=== PATIENT | male | born 2000 | race Two or more races ===

== ENCOUNTER 2025-04-29 20:14 | Emergency (ER) | payer OTHER ==
[~2025-04-29] VITALS: Ht 152.4 cm; Wt 81.8 kg
[2025-04-29 20:30] VITALS: TEMP 98.6
[2025-04-29] MEDS: NALOXONE HCL 0.4 MG/ML VIAL ONE (20:33)
--- NOTE | 2025-04-29 20:34 | ED.PDOC ---
Altered Mental Status HPI Comments HPI: 25 year old male presents to the emergency department via EMS with a chief complaint of overdose onset today (04/29/25). Per EMS, patient was found unresponsive by mother, laying on couch, mother noticed patient was not breathing, lips turning blue, she began compressions. Upon EMS arrival, patient's O2 sat was 33% on RA, RR 4, pale. 2 mg Narcan IN and 2 mg Narcan was given prior to ED arrival. Upon ED arrival, patient is responsive, poor historian, able to open eyes are answer questions. States he has a PMHx seizures, took about 10 pills of Xanax, unknown dosage, not able to say if medication is prescribed to him. Denies any fall, head injury, nausea, vomiting, diarrhea, chest pain, shortness of breath. No other symptoms or modifying factors present at this time. Initial Vitals BP: 144/79 HR: 116 RR: 4 O2 Sat: 33% RA ED arrival vitals: BP: 143/83 HR: 98 RR: 18 O2 Sat: 98% on 2L NC Past Medical history: seizure Past Surgical history: denies Medications: denies Social History: drug use. Allergies: NKDA HPI: Poor Historian. REVIEW OF SYSTEMS: CONSTITUTIONAL: Denies acute: fever, diaphoresis, chills, HEAD: Denies acute: headache, photophobia Eyes: Denies acute: Double vision, vision loss, eye pain, eye discharge. EARS: Denies acute: tinnitus, hearing loss, ear discharge, ear pain, THROAT: Denies acute: sore throat, swelling, difficulty swallowing , pain with swallowing, change in voice. NECK: Denies acute: neck pain, neck swelling, stiff neck. HEART: Denies acute : chest pain, palpitations, LUNGS: Denies acute: SOB, wheezing, cough, hemoptysis ABDOMEN: Denies acute: abdominal pain, Nausea, Vomiting, diarrhea, melena , hematemesis, hematochezia SKIN: Denies acute: rash, redness, lesions, itchiness. EXTREMITIES: Denies acute: calf pain, numbness, tingling, weakness, denies pain in extremity. Denies acute: Low back pain. Neuro: Denies acute: focal neurological deficit, motor or sensory focal neurological deficit, tremors, seizure like activity, loss of bowel or bladder function, cauda equina like symptoms. : Denies acute: dysuria, hematuria, flank pain, increase in urinary frequency. PSYCH: Denies acute: hallucination, suicidal ideation, homicidal ideation. PHYSICAL EXAM: General: ----no---acute distress, awake and alert. Head: normocephalic, atraumatic. Neck: supple, trachea is midline, no swelling. Cervical spine: Palpation of the posterior midline of the cervical spine reveals no focal swelling, erythema, focal tenderness to palpation. Patient has normal range of motion. Throat: Normal phonation. Eyes:, no erythema, no purulent discharge, no proptosis, no icterus. Heart: regular rate, regular rhythm, no significant murmur appreciated. Lungs: no apparent respiratory distress, No wheezing, no rhonchi, no crackles. No stridors Clear to auscultation bilaterally. Abdomen: non tender to palpation, non distended, soft, no guarding, no rebound, + bowel sounds. Neuro: Awake, Alert, oriented to name, self, situation, follows commands. Appears under the influence of some sedative. Skin: no petechia, no purpura, no cyanosis, non-pale, not jaundice. Lower extremities: --no - Pitting edema no deformity, no focal swelling, no calf TTP. Makes eye contact. moves all four extremities. Face: no apparent facial droop. PERRLA, EOM-I CN 2-12 are grossly intact, Bilateral Pupils are dilated but reactive to light. No nystagmus. No nuchal rigidity, Kernig's sign, Brudzinski's sign, no meningeal signs. ED COURSE: DISCLAIMER: This medical document was created using an electronic medical record system with voice recognition software and computerized dictation system. Although this document has been carefully reviewed, there might still be some phonetic and typographical errors. Occasional wrong-word or "sound-alike" substitutions may have occurred due to the inherent limitations of voice recognition software. Th carrie areas are purely typographical due to imperfections of the software programs and do not reflect any compromise in the patient's medical care. Please read the chart carefully and recognize, using context, where these substitutions have occurred. Time Seen by MD: 20:20 Reviewed Notes: Medications, Allergies Allergies: Coded Allergies: NO KNOWN ALLERGIES (Unverified , 04/29/25) Information Source: Patient, Emergency Med Personnel Mode of Arrival: EMS Severity: Moderate Timing: Hours Duration: Since onset Prehospital treatment: Other (Narcan 4 mg) Quality: Decreased Alertness, Change in Behavior Recent: None History of: Other Past Medical History PAST MEDICAL HISTORY: Seizures Surgical History: Appendectomy Family History Family History: Reviewed,noncontributory to illness, No family hx of Cancer, No family hx of DM, No family hx of Heart alicia, No family hx of HTN, No family hx ofKidney alicia, No family hx of Liver alicia, No family hx of Lung alicia, No family hx of Stroke Social History Smoker: Non-Smoker Alcohol: Denies ETOH Use Drugs: Other Lives In: Home EKG EKG : Pulse Rate (adult): 92 Cardiac Rhythm: NSR Was a procedure done? Was a procedure done?: No Differential Diagnosis (ALOC) Differential Diagnosis: Other (DDX include CVA, TGA, cerebellar ischemia/infarct, carotid stenosis, Intracranial mass/infection/bleed, encephalopathy, electrolyte abnormality, thyroid disease, hydrocephalus, hypoglycemia, drug toxicity, cardiac arrhythmia, seizure, infection in the elderly, Hyperammonemia., kidney failure., sepsis.) X-Ray, Labs, Meds, VS Vital Signs Date Time Temp Pulse Resp B/P (MAP) Pulse Ox O2 Delivery O2 Flow Rate FiO2 04/30/25 04:00 62 14 109/67 (81) 100 04/30/25 02:00 53 109/70 (83) 100 04/30/25 00:13 52 04/30/25 00:00 64 112/79 (90) 99 04/29/25 22:00 82 14 132/91 (105) 99 04/29/25 20:34 92 04/29/25 20:30 98.6 98 18 143/83 (103) 98 98.6 04/29/25 20:30 Nasal Cannula* 2 28 04/29/25 20:17 92 04/29/25 20:16 97.9 106 16 127/89 99 97.9 Lab Test 04/30/25 04:08 04/29/25 20:42 Range/Units Plasma/Serum Blood Alcohol < 3.0 <10 mg/dL White Blood Count 11.4 H 4.4-10.8 10^3/uL Red Blood Count 5.22 4.5-5.90 10^6/uL Hemoglobin 14.9 13.5-17.5 g/dL Hematocrit 44.4 41.0-53.0 % Mean Corpuscular Volume 85.2 80.0-100.0 fL Mean Corpuscular Hemoglobin 28.5 28.0-32.0 pg Mean Corpuscular Hemoglobin Concent 33.4 32.0-36.0 g/dL Red Cell Distribution Width 14.7 H 11.8-14.3 % Platelet Count 330 140-450 10^3/uL Mean Platelet Volume 7.5 6.9-10.8 fL Neutrophils (%) (Auto) 78.2 37.0-80.0 % Lymphocytes (%) (Auto) 12.4 10.0-50.0 % Monocytes (%) (Auto) 8.5 0.0-12.0 % Eosinophils (%) (Auto) 0.7 0.0-7.0 % Basophils (%) (Auto) 0.2 0.0-2.0 % Neutrophils # (Auto) 8.9 H 1.6-8.6 10 ^3/uL Lymphocytes # (Auto) 1.4 0.4-5.4 10 ^3/uL Monocytes # (Auto) 1.0 0-1.3 10 ^3/uL Eosinophils # (Auto) 0.1 0-0.8 10 ^3/uL Basophils # (Auto) 0 0-0.2 10 ^3/uL Nucleated Red Blood Cells 0.1 % Sodium Level 139 136-145 mmol/L Potassium Level 4.3 3.5-5.1 mmol/L Chloride Level 102 98-107 mmol/L Carbon Dioxide Level 31 20-31 mmol/L Anion Gap 6 5-15 Blood Urea Nitrogen 6 L 9-23 mg/dL Creatinine 1.11 0.700-1.30 mg/dL Glomerular Filtration Rate Calc 95 >90 mL/min BUN/Creatinine Ratio 5.4 L 10.0-20.0 Serum Glucose 91 74-106 mg/dL Lactic Acid Level 0.8 0.4-2.0 mmol/L Calcium Level 9.4 8.7-10.4 mg/dL Total Bilirubin 1.6 H 0.2-1.0 mg/dL Aspartate Amino Transferase (AST) 17 13-40 U/L Alanine Aminotransferase (ALT) 27 7-40 U/L Alkaline Phosphatase 64 46-116 U/L Troponin I High Sensitivity 9 </=54 ng/L Total Protein 7.7 5.7-8.2 g/dL Albumin 4.8 3.2-4.8 g/dL Salicylates Level < 3.0 -30 mg/dL Acetaminophen Level < 2.0 L 10.0-20.0 UG/ML Time of 1ST Reevaluation: 20:50 Reevaluation 1ST: Unchanged Time of 2ND Reevaluation: 21:24 (Patient later told the nurse that he took 2 "mollies"Patient ripped off his IV and wanted to leave against medical advice. He contacted his mother to come pick him up but she never showed up.) Time of 3RD Reevaluation: 04:31 (Urine drug screen is still pending. Patient received 2 L of normal saline bolus. Patient is ambulating, refuses to give urine. mother is at bedside, is signing the patient out AMA) Patient Education/Counseling: Diagnosis, Treatment Family Education/Counseling: No Family Present Departure 1 Departure Time of Disposition: 04:30 Impression: Primary Impression: Altered level of consciousness Additional Impressions: Drug abuse Left against medical advice Disposition: 07 LEFT AGAINST MEDICAL ADVICE Condition: Stable Additional Instructions: You are leaving against medical advice Additional instructions: You MUST follow-up with your primary care/family doctor in 1 to 2 days. If you are unable to see your primary care/family doctor, please return to our emergency room for re-assessment and re-evaluation in 1 to 2 days. Return to the emergency room here in our facility or to the nearest ER [facility] if your symptoms change or worsen. Seek help regarding your drug abuse and addiction. Adequate fluid hydration. Discharged With: Self Critical Care Note Critical Care Time?: Yes (1 hr-critical care time only) I personally scribed for BELKIS HYATT DO ([email or web address]) on 04/29/25 at 20:34. Electronically submitted by Herminia Rosen ([email or web address]). I personally scribed for BELKIS HYATT DO ([email or web address]) on 04/29/25 at 21:14. Electronically submitted by Herminia Rosen ([email or web address]). I personally scribed for BELKIS HYATT DO ([email or web address]) on 04/30/25 at 05:51. Electronically submitted by Herminia Rosen ([email or web address]). I personally scribed for BELKIS HYATT DO ([email or web address]) on 04/30/25 at 05:54. Electronically submitted by Herminia Rosen ([email or web address]). BELKIS HYATT DO Apr 29, 2025 20:34
[2025-04-29] MEDS: SODIUM CHLORIDE 0.9% 1,000 ML IV ONE (20:45)
[2025-04-29 20:56] LABS: Hematocrit 44.4 % (41.0-53.0); Hemoglobin 14.9 g/dL (13.5-17.5); Mean Corpuscular Hemoglobin 28.5 pg (28.0-32.0); Mean Corpuscular Volume 85.2 fL (80.0-100.0); Nucleated Red Blood Cells % 0.1 %
[2025-04-29 21:18] LABS: Acetaminophen < 2.0 UG/ML (10.0-20.0); Salicylate < 3.0 mg/dL (-30)
[2025-04-29 21:26] LABS: Alanine Aminotransferase 27 U/L (7-40); Alkaline Phosphatase 64 U/L (46-116); Anion Gap 6 (5-15); BUN/Creatinine Ratio 5.4 (10.0-20.0); Calcium 9.4 mg/dL (8.7-10.4); Carbon Dioxide 31 mmol/L (20-31); Chloride 102 mmol/L (98-107); Glucose 91 mg/dL (74-106); Potassium 4.3 mmol/L (3.5-5.1); Sodium 139 mmol/L (136-145); Total Protein 7.7 g/dL (5.7-8.2)
[2025-04-29 21:29] LABS: Albumin 4.8 g/dL (3.2-4.8); Bilirubin, Total 1.6 mg/dL (0.2-1.0); Blood Urea Nitrogen 6 mg/dL (9-23)
[2025-04-30] MEDS: SODIUM CHLORIDE 0.9% 1,000 ML IV ONE (01:00)
[2025-04-30 04:00] VITALS: BP 109/67; PULSE 62; RESP 14; O2SAT 100
--- NOTE | 2025-04-30 04:24 | ECG ---
[facility] Test Date: 2025-04-30 Test Time: 00:13:49 Pat Name: YUKI MAK Department: [facility] ED Patient ID: [facility]-[id number] Room: Gender: M Consulting Group Analyst: JAQUELINE : 2000 Requested By: BELKIS HYATT Order Number: [id number] Reading MD: Yuriy Diaz Measurements Intervals [place] Rate: 52 P: 7 AL: 134 QRS: 71 QRSD: 108 T: 46 QT: 430 QTc: 400 Interpretive Statements Sinus rhythm Atrial premature complexes in couplets Electronically Signed On 05-05-2025 14:20:20 PDT by Yuriy Diaz Please click the below link to view image of tracing.
--- NOTE | 2025-04-30 09:10 | ECG ---
[facility] Test Date: 2025-04-30 Test Time: 05:15:50 Pat Name: YUKI MAK Department: [facility] ED Patient ID: [facility]-[id number] Room: Gender: M Business Liaison Officer: DILAN : 2000 Requested By: EMERGENCY EMERGENCY Order Number: [id number] Reading MD: Yuriy Diaz Measurements Intervals [place] Rate: 71 P: 38 [place]: 149 QRS: 49 QRSD: 106 T: 2 QT: 425 QTc: 462 Interpretive Statements Sinus rhythm Baseline wander in lead(s) V4 Electronically Signed On 05-05-2025 14:21:01 PDT by Yuriy Diaz Please click the below link to view image of tracing.
--- NOTE | 2025-04-30 09:11 | ECG ---
[facility] Test Date: 2025-04-29 Test Time: 20:17:29 Pat Name: YUKI MAK Department: [facility] ED Patient ID: [facility]-[id number] Room: Gender: M Sap Bi Developer: JAQUELINE : 2000 Requested By: EMERGENCY EMERGENCY Order Number: [id number] Reading MD: Yuriy Diaz Measurements Intervals [place] Rate: 92 P: 77 [place]: 151 QRS: 74 QRSD: 104 T: 48 QT: 368 QTc: 456 Interpretive Statements Sinus rhythm Consider left atrial enlargement Electronically Signed On 05-05-2025 14:19:37 PDT by Yuriy Diaz Please click the below link to view image of tracing.
== END 2025-04-30 05:53 | disposition left against medical advice (07) ==
LOC: ER 20:14 → EDBD 20:14 → ER 04-30 05:53
DX: R41.82 Altered mental status, unspecified (principal); F19.10 Other psychoactive substance abuse, uncomplicated; Z90.49 Acquired absence of other specified parts of digestive tract; Z79.899 Other long term (current) drug therapy
CPT/HCPCS: 36415; 80053; 80320; 80329; 82947; 83605; 84484; 85025; 93005; 96360; 96361; 99285; J2312; J7030